=== PATIENT | female | born 1965 | race Caucasian/White ===

== ENCOUNTER 2018-07-10 10:47 | Emergency (ER) | payer OTHER ==
[~2018-07-10] VITALS: Ht 160 cm; Wt 63.0 kg
[2018-07-10] MEDS ORDERED: COREG3.125 MG PO (12:49)
--- NOTE | 2018-07-10 17:46 | EKG ---
[facility] [address] [facility] [place], [place] [address] Signed Normal sinus rhythm Normal ECG No previous ECGs available Confirmed by CHANTAL NICOLAS DO ([id number]) on 07/10/2018 5:46:26 PM Electronically Signed By: CHANTAL NICOLAS DO 07/10/18 1746 PATIENT NAME: CALLUM MORENOU Yuri Electrocardiogram DATE OF : 65 PHYSICIAN: CHANTAL NICOLAS DO REPORT #: [id number] REPORT IS CONFIDENTIAL AND NOT TO BE RELEASED WITHOUT AUTHORIZATION
== END 2018-07-10 13:17 | disposition home or self-care (01) ==
LOC: ED 10:47
DX: R07.9 Chest pain, unspecified (principal); Z91.09 Other allergy status, other than to drugs and biological substances
CPT/HCPCS: 71045; 71260; 80053; 81001; 83880; 84484; 85025; 85379; 85610; 93005; 93010; 99285-25; Q9967